=== PATIENT | female | born 2005 | race Two or more races ===

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

== ENCOUNTER 2025-02-21 14:13 | Emergency (ER) | payer OTHER ==
[~2025-02-21] VITALS: Ht 154.9 cm; Wt 71.0 kg
[2025-02-21 14:23] VITALS: O2SAT 97
[2025-02-21 15:09] LABS: BASOPHILS % 0.5 % (0.0-2.0); EOSINOPHILS % 0.2 % (0.0-5.0); HEMATOCRIT. 37.9 % (36.0-48.0); HEMOGLOBIN. 12.4 g/dL (12.0-16.0); LYMPHOCYTES % 10.6 % (20.0-50.0); MEAN PLATELET VOLUME 8.6 fl (7.4-10.4); MONOCYTES % 6.7 % (2.0-8.0); NEUTROPHILS % 82.0 % (40.0-76.0); PLATELET 252 x1000/uL (130-400); RED BLOOD CELL COUNT 4.48 mill/uL (4.2-5.4); RED CELL DISTRIBUTION WIDTH 12.9 % (11.6-14.6)
[2025-02-21 15:22] LABS: CREATININE 0.8 mg/dL (0.6-1.0)
[2025-02-21 15:23] LABS: UREA NITROGEN BLOOD 8 mg/dL (9-23)
[2025-02-21 15:45] VITALS: TEMP 39.7
[2025-02-21] MEDS: AMPICILLIN SOD/SULBACTAM NA 6 G in SODIUM CHLORIDE 0.9% 200 ML IV SCH (15:58)
[2025-02-21] MEDS: SODIUM CHLORIDE 0.9% (SEPSIS BOLUS) IV ONE (16:08)
[2025-02-21 16:26] LABS: INR 1.0
[2025-02-21] MEDS: ACETAMINOPHEN 500MG TABLET PO ONE (16:26)
[2025-02-21] MEDS: KETOROLAC 15MG/ML VIAL IV ONE (16:27)
[2025-02-21] MEDS: ONDANSETRON HCL 4MG/2ML INJ IV ONE (16:27)
[2025-02-21 16:32] LABS: PROTEIN TOTAL 7.6 g/dL (6.0-8.3)
[2025-02-21 16:33] LABS: ASPARTATE AMINOTRANSFERASE 25 IU/L (<34)
[2025-02-21 16:34] LABS: BILIRUBIN DIRECT 0.1 mg/dL (<=3.0); BILIRUBIN TOTAL 0.5 mg/dL (0.1-1.0)
[2025-02-21 16:40] LABS: HCG SCREEN NEGATIVE
[2025-02-21 17:54] LABS: INFLUENZA TYPE A Presumptive Negative (Pres. Neg.); INFLUENZA TYPE B Presumptive Negative (Pres. Neg.)
[2025-02-21 17:58] LABS: MONOTEST NEGATIVE (NEGATIVE)
[2025-02-21] MEDS ORDERED: IBUP-2030 MT (19:03)
[2025-02-21] MEDS ORDERED: AMOX1TAB16 MT (19:03)
[2025-02-21 19:45] VITALS: BP 97/48; PULSE 96; RESP 10; O2SAT 96
[2025-02-21] MEDS ORDERED: IOHEXOL-300 100 ML BOTTLE ONE (22:44)
== END 2025-02-21 19:46 | disposition home or self-care (01) ==
LOC: ER 14:52
DX: J02.9 Acute pharyngitis, unspecified (principal); R00.0 Tachycardia, unspecified; Z20.822 Contact with and (suspected) exposure to COVID-19; Z79.01 Long term (current) use of anticoagulants
CPT/HCPCS: 80076; 80048; 84703; 87430; 83605; 85025; 85610; 86308; 87040; 87070; 87804 ×2; 36415; 84145; 71045; 70491; 93005; 96365; 96375; 99285; 87426; Q9967; J1885; J2405; J7030; Z7610; J0295; J7050